=== PATIENT | male | born 1950 | race Caucasian/White ===

== ENCOUNTER 2023-01-17 08:32 | Outpatient (CLI) | payer MEDICARE, OTHER | END 2023-01-17 23:59 | disposition left against medical advice (07) | LOC: EMS 08:32 | DX: S09.92XA Unspecified injury of nose, initial encounter (principal); W01.0XXA Fall on same level from slipping, tripping and stumbling without subsequent striking against object, initial encounter; Y92.030 Kitchen in apartment as the place of occurrence of the external cause; Z79.01 Long term (current) use of anticoagulants ==